=== PATIENT | male | born 1995 | race Caucasian/White ===

== ENCOUNTER → 2022-02-25 12:13 | Outpatient (BNVA) | payer OTHER, SELFPAY | PROVIDERS: PCP Internal Medicine; Visit Provider Physician Assistant Medical | DX: M25.531 Pain in right wrist (principal); S63.501A Unspecified sprain of right wrist, initial encounter; V84.5XXA Driver of special agricultural vehicle injured in nontraffic accident, initial encounter | CPT/HCPCS: 29125; 73110; 99203 ==

== ENCOUNTER → 2022-02-27 11:24 | Outpatient (BNVA) | payer OTHER, SELFPAY | PROVIDERS: PCP Internal Medicine; Visit Provider Physician Assistant Medical | DX: S63.591D Other specified sprain of right wrist, subsequent encounter (principal); V84.5XXD Driver of special agricultural vehicle injured in nontraffic accident, subsequent encounter | CPT/HCPCS: 99213 ==

== ENCOUNTER 2025-01-20 23:33 | Emergency (ER) | payer OTHER, SELFPAY ==
[2025-01-20 23:51] VITALS: BP 115/67; PULSE 51; RESP 16; TEMP 36.9; O2SAT 99; BMI 32.5
--- NOTE | 2025-01-21 00:32 | ED_ITS ---
HPI - Skin/Abscess/Foreign Bdy General Chief complaint: Skin/Abscess/Foreign Body Stated complaint: bug/animal bite Time Seen by Provider: 01/21/25 00:09 History of Present Illness ED Provider: diane HPI narrative: Patient says he awoke just before arrival here and found what he felt was a concerning lesion he thought was maybe a bug bite. Denies any raised areas or pain to the area no gum bleeding easy bruising or other complaints of the skin or musculoskeletal system Related Data Allergies Allergy/AdvReac Type Severity Reaction Status Date / Time No Known Allergies Allergy Verified 01/20/25 23:53 [facility] Social History Social History Advance Directives: No Advance Directives Information Provided: Yes Physical Exam Exam: Exam: GENERAL: Well appearing. No apparent distress. Alert. HEAD/NECK: No visual trauma. EYES: Normal to inspection. No conjunctival erythema. No discharge. ENMT: Hearing grossly normal. External nose normal. RESPIRATORY: Respiratory effort normal. CARDIOVASCULAR: Additional details (Grossly well perfused). SKIN: Proximally 2 x 3 mm area of ecchymosis in the mid bicipital region. No rash compartments are soft no bites pustules or any other abnormalities nearby. No other abnormalities in the skin exam including no petechia purpura NEUROLOGICAL: Alert. Moving all extremities x4. Additional details (No gross mo tor deficits. Normal tone. ). PSYCHIATRIC: Alert. Appearance appropriate for situation. Vital Signs: Vital Signs: Last Vital Signs Temp 98.4 F 01/21/25 00:36 Pulse 51 01/21/25 00:36 Resp 16 01/21/25 00:36 BP 115/67 01/21/25 00:36 Pulse Ox 99 01/21/25 00:36 O2 Del Method Room Air 01/21/25 00:36 BMI result Body Mass Index 32.5 Medical Decision Making Medical Decision Making [facility] Narrative: 29-year-old male with no significant medical history he has in fact a tiny area of subcutaneous ecchymosis. There was no evidence of insect bite traumatic injury nor any other exam findings or historical findings to suggest co agulopathy. Unsure why this patient was particularly concerned about this very small lesion on the arm but I tried to reassure him Discharge Plan Discharge Clinical Impression: Pattern bruising of skin Patient Disposition: Home, Self-Care Instructions: Contusion in Adults (ED) Additional Instructions: You were evaluated for a very small flat otherwise asymptomatic area of bruising or ecchymosis on your right arm. We did not find any concerning findings examining this and would recommend monitoring at contact your primary doctor Interventions: ED Discharge Assessment Last Done: 01/21/25 00:36 Discharge Date/Time: 01/21/25 00:42 Print Language: [place]
[2025-01-21 00:36] VITALS: BP 115/67; PULSE 51; RESP 16; TEMP 36.9; O2SAT 99
== END 2025-01-21 00:42 | disposition home or self-care (01) ==
PROVIDERS: Emergency Provider Emergency Medicine
DX: S40.021A Contusion of right upper arm, initial encounter (principal); X58.XXXA Exposure to other specified factors, initial encounter; Y93.9 Activity, unspecified; Y92.9 Unspecified place or not applicable; Y99.9 Unspecified external cause status
CPT/HCPCS: 99282